=== PATIENT | female | born 1960 | race African-American/Black ===

== ENCOUNTER 2022-01-19 10:01 | Observation (INO) ==
[2022-01-19] MEDS ORDERED: NS 1,000 ML IV 1,000 ML ONE ×2 (10:18→16:33)
[2022-01-19] MEDS ORDERED: CLEOCIN 600 MG IV PREMIX 600 MG/50 ML BAG IV ONE (10:24)
[2022-01-19 10:43] VITALS: BMI 33.0
[2022-01-19] MEDS ORDERED: XYLOCAINE 1 % (PLAIN) ONE (12:03)
[2022-01-19] MEDS ORDERED: MARCAINE 0.25% INJ ONE (12:05)
[2022-01-19] MEDS ORDERED: ROBINUL ONE (12:06)
[2022-01-19] MEDS ORDERED: DIPRIVAN VIAL 20 ML ONE (12:06)
[2022-01-19] MEDS ORDERED: DECADRON INJ ONE (12:06)
[2022-01-19] MEDS ORDERED: ZOFRAN INJ 4 MG VIAL ONE (12:06)
[2022-01-19] MEDS ORDERED: PEPCID 20 MG VIAL ONE (12:06)
[2022-01-19] MEDS ORDERED: ULTANE GAS IN ONE (12:17)
[2022-01-19] MEDS ORDERED: EPHEDRINE SULFATE INJ ONE (12:36)
[2022-01-19] MEDS ORDERED: HYDROGEN PEROXIDE 3% ONE (14:05)
[2022-01-19] MEDS ORDERED: ZOFRAN INJ 4 MG VIAL IVP PRN ×2 (14:34)
[2022-01-19] MEDS ORDERED: BARHEMSYS INJ IVP PRN (14:34)
[2022-01-19] MEDS ORDERED: PHENERGAN INJ 25 MG IM PRN (14:34)
[2022-01-19] MEDS ORDERED: TYLENOL 325 MG TAB PO PRN (14:34)
[2022-01-19] MEDS ORDERED: BENADRYL INJ 50 MG VIAL IVP PRN (14:34)
[2022-01-19] MEDS ORDERED: DILAUDID INJ IVP PRN (14:34)
[2022-01-19] MEDS: NS 1,000 ML IV 1,000 ML IV SCH (19:21)
[2022-01-19] MEDS: PERCOCET TAB 5/325 MG PO PRN (20:05)
[2022-01-19] MEDS: COLACE CAP 100 MG PO SCH (21:30)
[2022-01-20] MEDS: DILAUDID INJ IVP PRN (05:45)
[2022-01-20] MEDS: NS 1,000 ML IV 1,000 ML IV SCH ×2 (06:39→08:10)
[2022-01-20 07:28] LABS: BLOOD UREA NITROGEN 15 mg/dL (7-18); CALCIUM 7.9 mg/dL (8.5-10.1); CARBON DIOXIDE 26.1 mmol/L (21-32); CHLORIDE 105 mmol/L (98-107); COR NA(FOR HYPERGLY) 143 mmol/L (136-145); CREATININE 1.11 mg/dL (0.55-1.02); SODIUM 139 mmol/L (136-145); eGFR NON BLACK RACES 53 (>60)
[2022-01-20] MEDS ORDERED: LOVENOX INJ 40 MG SYR SC ONE (07:35)
[2022-01-20] MEDS: LOVENOX INJ 40 MG SYR SC SCH (08:10)
--- NOTE | 2022-01-20 11:21 | PCM.PROG ---
Progress Note Progress Note for Day of Date of Exam: 01/20/22 Subjective Subjective: Mrs. Motta is a 61 yo female who is s/p left foot osteotomy with application of external fixator, DOS was 01/19. She is doing well with minimal pain. She denies any f/c/n/v/sob/calf pain. Past Medical Family Social History Past Med/Fam/Surg Hx: No changes since H&P Allergies: Allergies morphine Allergy (Verified 01/19/22 10:29) Penicillins Allergy (Verified 01/19/22 10:29) Vital Signs and I&O's Vital Signs: Temperature 98.1 F Pulse Rate [Left Brachial] 71 Pulse Rate 61 Respiratory Rate 20 Blood Pressure [Left Arm] 169/72 Blood Pressure 143/68 O2 Sat by Pulse Oximetry 97 Intake and Output: Intake & Output 01/17/22 01/18/22 01/19/22 01/20/22 23:59 23:59 23:59 23:59 Intake Total 1550 / 1550 1450 / 1450 Balance 1550 / 1550 1450 / 1450 Physical Exam Musculoskeletal: Left (Left LE with ex fix intact and stable. Sensation intact to the digits x5 on the left. Cap fill immediate to the digits. No active drainage. Patient is able to move her digits x5.) Mood Description: Calm Speech Pattern: Clear and Appropriate Laboratory and Diagnostics Result Diagrams: 01/20/22 06:40 01/20/22 06:40 Labs: Laboratory Sodium 139 mmol/L (136-145) 01/20/22 06:40 Corrected Sodium 143 mmol/L (136-145) 01/20/22 06:40 Potassium 3.9 mmol/L (3.5-5.1) 01/20/22 06:40 Chloride 105 mmol/L (98-107) 01/20/22 06:40 Carbon Dioxide 26.1 mmol/L (21-32) 01/20/22 06:40 BUN 15 mg/dL (7-18) 01/20/22 06:40 Creatinine 1.11 mg/dL (0.55-1.02) H 01/20/22 06:40 Est GFR (MDRD) Af Amer > 60 (>60) 01/20/22 06:40 Est GFR (MDRD) Non-Af 53 (>60) L 01/20/22 06:40 Glucose 268 mg/dL (65-99) H 01/20/22 06:40 POC Glucose (mg/dL) 108 mg/dL (65-99) H 01/19/22 10:20 Calcium 7.9 mg/dL (8.5-10.1) L 01/20/22 06:40 SARS CoV-2 RNA Rapid MITCHELL Negative (NEGATIVE) 01/19/22 10:14 Plan (1) Charcot's joint, left ankle and foot: Status: Acute Plan: Mrs. Motta is a 61 yo female who is s/p left Ex fix application and midfoot osteotomy, dos was 01/19. She is with VSS and NAD. No leukocytosis. Plan: ok for discharge from the foot and ankle standpoint Keep Left LE elevated x2 pillow. NWB on the left No dressing change will be needed Rx's in chart PT eval appreciated Patient is to follow up with Dr. Amin in Clinic Please do not hesitate to contact me with any questions or concerns. Jose Peterson DPM Fellow [phone]
[2022-01-20] MEDS ORDERED: LEXAPRO ONE (12:32)
[2022-01-20] MEDS: VITAMIN B-12 PO SCH (12:40)
[2022-01-20] MEDS: ASPIRIN EC 81 MG PO SCH (12:40)
[2022-01-20] MEDS: ZESTRIL TAB 10 MG PO SCH (12:41)
[2022-01-20] MEDS: LEXAPRO PO SCH (12:41)
[2022-01-20] MEDS: LANTUS SC SCH ×2 (12:42→20:30)
[2022-01-20] MEDS: MAG-OX TAB PO SCH (12:42)
[2022-01-20] MEDS: ZOLOFT PO SCH (12:42)
[2022-01-20] MEDS: FOLIC ACID TAB 1 MG PO SCH (12:42)
[2022-01-20] MEDS: LAC HYDRIN TOP SCH ×2 (12:44→20:58)
[2022-01-20] MEDS ORDERED: ZESTRIL TAB 20 MG PO ONE (13:21)
[2022-01-20] MEDS: PERCOCET TAB 5/325 MG PO PRN ×2 (15:52→21:02)
[2022-01-20] MEDS: GLUCOPHAGE PO SCH ×2 (17:19→20:58)
[2022-01-20] MEDS ORDERED: GLUCOPHAGE ONE (20:38)
[2022-01-20] MEDS: SNACK - Diabetic Appropriate PO SCH (20:58)
[2022-01-20] MEDS: COLACE CAP 100 MG PO SCH (20:58)
[2022-01-20] MEDS: LIPITOR TAB 20 MG PO SCH (21:01)
[2022-01-21 05:41] LABS: BASOPHILS % (AUTO) 0.7 % (0.2-1.0); EOSINOPHILS # (AUTO) 0.1 x10^3/uL (0.0-0.2); EOSINOPHILS % (AUTO) 1.9 % (0.9-2.9); HEMATOCRIT 36.2 % (36.0-47.0); HEMOGLOBIN 11.5 g/dL (12.0-16.0); LYMPHOCYTES # (AUTO) 1.5 X10^3/uL (1.3-2.9); LYMPHOCYTES % (AUTO) 22.1 % (21.0-51.0); MEAN CORPUSCULAR HEMOGLOBIN 23.2 pg (27.0-34.0); MEAN CORPUSCULAR HGB CONC 31.8 g/dL (33.0-35.0); MEAN PLATELET VOLUME 9.1 fL (7.4-11.0); MONOCYTES # (AUTO) 0.9 x10^3/uL (0.3-0.8); MONOCYTES % (AUTO) 12.9 % (0.0-13.0); NEUTROPHILS # (AUTO) 4.3 x10^3/uL (2.2-4.8); NEUTROPHILS % (AUTO) 62.4 % (42.0-75.0); RED BLOOD COUNT 4.95 X10^6/uL (3.5-5.4); RED CELL DISTRIBUTION WIDTH 15.3 % (11.6-16.5); WHITE BLOOD COUNT 6.8 X10^3/uL (3.6-10.0)
[2022-01-21 06:02] LABS: HYPOCHROMASIA SLIGHT; MICROCYTOSIS SLIGHT; PLATELET MORPHOLOGY COMMENT NORMAL (NORMAL); TEAR DROP CELLS PRESENT
[2022-01-21] MEDS ORDERED: LEXAPRO ONE (07:01)
[2022-01-21] MEDS ORDERED: GLUCOPHAGE ONE ×2 (07:01→16:37)
[2022-01-21] MEDS: NS 1,000 ML IV 1,000 ML IV SCH (08:32)
[2022-01-21] MEDS: MAG-OX TAB PO SCH (08:33)
[2022-01-21] MEDS: GLUCOPHAGE PO SCH ×2 (08:33→16:44)
[2022-01-21] MEDS: LANTUS SC SCH ×2 (08:34→21:37)
[2022-01-21] MEDS: FOLIC ACID TAB 1 MG PO SCH (08:34)
[2022-01-21] MEDS: ASPIRIN EC 81 MG PO SCH (08:34)
[2022-01-21] MEDS: LEXAPRO PO SCH (08:34)
[2022-01-21] MEDS: LAC HYDRIN TOP SCH ×2 (08:34→21:37)
[2022-01-21] MEDS: LOVENOX INJ 40 MG SYR SC SCH (08:35)
[2022-01-21] MEDS: ZOLOFT PO SCH (08:36)
[2022-01-21] MEDS: ZESTRIL TAB 10 MG PO SCH (08:36)
[2022-01-21] MEDS: VITAMIN B-12 PO SCH (08:36)
[2022-01-21] MEDS: ACTOS PO SCH (12:10)
[2022-01-21] MEDS: PERCOCET TAB 5/325 MG PO PRN (16:44)
[2022-01-21] MEDS: DILAUDID INJ IVP PRN (18:29)
[2022-01-21] MEDS: SNACK - Diabetic Appropriate PO SCH (21:35)
[2022-01-21] MEDS: COLACE CAP 100 MG PO SCH (21:36)
[2022-01-21] MEDS: LIPITOR TAB 20 MG PO SCH (21:37)
[2022-01-22] MEDS: DILAUDID INJ IVP PRN (04:21)
[2022-01-22 05:56] LABS: BASOPHILS # (AUTO) 0.1 X10^3/uL (0.0-0.1); BASOPHILS % (AUTO) 0.9 % (0.2-1.0); EOSINOPHILS # (AUTO) 0.2 x10^3/uL (0.0-0.2); EOSINOPHILS % (AUTO) 3.2 % (0.9-2.9); HEMATOCRIT 32.9 % (36.0-47.0); HEMOGLOBIN 10.4 g/dL (12.0-16.0); LYMPHOCYTES # (AUTO) 1.7 X10^3/uL (1.3-2.9); LYMPHOCYTES % (AUTO) 25.7 % (21.0-51.0); MEAN CORPUSCULAR HEMOGLOBIN 23.1 pg (27.0-34.0); MEAN CORPUSCULAR HGB CONC 31.6 g/dL (33.0-35.0); MEAN CORPUSCULAR VOLUME 73.2 fL (80.0-100.0); MEAN PLATELET VOLUME 8.8 fL (7.4-11.0); MONOCYTES # (AUTO) 0.9 x10^3/uL (0.3-0.8); MONOCYTES % (AUTO) 14.1 % (0.0-13.0); NEUTROPHILS # (AUTO) 3.6 x10^3/uL (2.2-4.8); NEUTROPHILS % (AUTO) 56.1 % (42.0-75.0); RED CELL DISTRIBUTION WIDTH 15.7 % (11.6-16.5); WHITE BLOOD COUNT 6.4 X10^3/uL (3.6-10.0)
[2022-01-22] MEDS ORDERED: GLUCOPHAGE ONE (05:56)
[2022-01-22 06:06] LABS: ALBUMIN 2.6 g/dL (3.4-5.0); CALCIUM 8.3 mg/dL (8.5-10.1); CARBON DIOXIDE 26.2 mmol/L (21-32); COR CA(FOR HYPOALB) 9.4 mg/dL (8.5-10.1); CREATININE 1.3 mg/dL (0.55-1.02); TOTAL PROTEIN 6.1 g/dL (6.4-8.2)
[2022-01-22] MEDS: GLUCOPHAGE PO SCH (06:31)
[2022-01-22 06:32] LABS: HYPOCHROMASIA SLIGHT; MICROCYTOSIS SLIGHT; PLATELET MORPHOLOGY COMMENT NORMAL (NORMAL)
[2022-01-22] MEDS: MAG-OX TAB PO SCH (06:32)
[2022-01-22 06:33] LABS: TEAR DROP CELLS PRESENT
[2022-01-22] MEDS ORDERED: LEXAPRO ONE (07:38)
[2022-01-22] MEDS: LOVENOX INJ 40 MG SYR SC SCH (08:14)
[2022-01-22] MEDS: ACTOS PO SCH (08:15)
[2022-01-22] MEDS: VITAMIN B-12 PO SCH (08:16)
[2022-01-22] MEDS: FOLIC ACID TAB 1 MG PO SCH (08:16)
[2022-01-22] MEDS: ZESTRIL TAB 10 MG PO SCH (08:16)
[2022-01-22] MEDS: ZOLOFT PO SCH (08:16)
[2022-01-22] MEDS: ASPIRIN EC 81 MG PO SCH (08:16)
[2022-01-22] MEDS: LEXAPRO PO SCH (08:17)
[2022-01-22] MEDS: LAC HYDRIN TOP SCH (08:17)
[2022-01-22] MEDS: LANTUS SC SCH (08:30)
[2022-01-22 09:18] VITALS: BP 116/55
[2022-01-22] MEDS ORDERED: GLUCOPHAGE PO SCH (17:00)
== END 2022-01-22 09:15 | disposition home or self-care (01) ==
LOC: EDBD → SURG1 10:01 → MED/SURG 10:01
PROVIDERS: ADMIT Obstetrics & Gynecology Obstetrics; ATTEND Obstetrics & Gynecology Obstetrics
PROC: APEXFIX (2022-01-19 14:45)
DX: S93.05XA Dislocation of left ankle joint, initial encounter; X58.XXXA Exposure to other specified factors, initial encounter; Z20.822 Contact with and (suspected) exposure to COVID-19; Q66.02 Congenital talipes equinovarus, left foot; M14.672 Charcot's joint, left ankle and foot; R73.09 Other abnormal glucose

== ENCOUNTER 2022-03-02 08:30 | Observation (INO) ==
[2022-03-02] MEDS ORDERED: NS 1,000 ML IV 1,000 ML ONE ×2 (09:18→14:16)
[2022-03-02] MEDS ORDERED: NS 100 ML IV 100 ML ONE (09:18)
[2022-03-02] MEDS ORDERED: ANCEF VIAL 1 GRAM ONE (09:18)
[2022-03-02 09:35] VITALS: BMI 33.0
[2022-03-02] MEDS ORDERED: MARCAINE 0.25% INJ ONE (12:04)
[2022-03-02] MEDS ORDERED: BETADINE SOLN ONE ×2 (12:05→12:09)
[2022-03-02] MEDS ORDERED: BRIDION ONE (12:08)
[2022-03-02] MEDS ORDERED: ZEMURON 100 MG VIAL ONE (12:08)
[2022-03-02] MEDS ORDERED: FENTANYL VIAL INJ 100 mcg ONE (12:08)
[2022-03-02] MEDS ORDERED: TORADOL 30 MG VIAL ONE (12:08)
[2022-03-02] MEDS ORDERED: QUELICIN (OR ANECTINE) ONE (12:08)
[2022-03-02] MEDS ORDERED: ZOFRAN INJ 4 MG VIAL ONE (12:08)
[2022-03-02] MEDS ORDERED: DIPRIVAN VIAL ONE (12:08)
[2022-03-02] MEDS ORDERED: OFIRMEV IV 1000 MG VIAL IV ONE (12:08)
[2022-03-02] MEDS ORDERED: EPHEDRINE SULFATE INJ ONE (12:08)
[2022-03-02] MEDS ORDERED: VERSED ONE (12:08)
[2022-03-02] MEDS ORDERED: HYDROGEN PEROXIDE 3% ONE (14:45)
[2022-03-02] MEDS ORDERED: PHENERGAN INJ 25 MG IM PRN (15:20)
[2022-03-02] MEDS ORDERED: BARHEMSYS INJ IVP PRN (15:20)
[2022-03-02] MEDS ORDERED: BENADRYL INJ 50 MG VIAL IVP PRN (15:20)
[2022-03-02] MEDS ORDERED: DILAUDID INJ IVP PRN (15:20)
[2022-03-02] MEDS ORDERED: ZOFRAN INJ 4 MG VIAL IVP PRN ×2 (15:20→15:27)
[2022-03-02] MEDS ORDERED: TYLENOL 325 MG TAB PO PRN (15:27)
[2022-03-02] MEDS: PERCOCET TAB 5/325 MG PO PRN (16:33)
[2022-03-02] MEDS ORDERED: COLACE CAP 100 MG PO SCH (21:00)
[2022-03-02] MEDS: DILAUDID INJ IVP PRN (21:07)
[2022-03-03] MEDS: DILAUDID INJ IVP PRN ×3 (04:37→16:42)
[2022-03-03 06:16] LABS: BASOPHILS % (AUTO) 0.5 % (0.2-1.0); EOSINOPHILS # (AUTO) 0.2 x10^3/uL (0.0-0.2); EOSINOPHILS % (AUTO) 2.7 % (0.9-2.9); HEMATOCRIT 33.2 % (36.0-47.0); HEMOGLOBIN 10.4 g/dL (12.0-16.0); LYMPHOCYTES # (AUTO) 0.7 X10^3/uL (1.3-2.9); LYMPHOCYTES % (AUTO) 9.6 % (21.0-51.0); MEAN CORPUSCULAR HEMOGLOBIN 23.3 pg (27.0-34.0); MEAN CORPUSCULAR HGB CONC 31.4 g/dL (33.0-35.0); MEAN PLATELET VOLUME 9.1 fL (7.4-11.0); MONOCYTES # (AUTO) 0.8 x10^3/uL (0.3-0.8); NEUTROPHILS # (AUTO) 5.4 x10^3/uL (2.2-4.8); NEUTROPHILS % (AUTO) 76.2 % (42.0-75.0); RED BLOOD COUNT 4.49 X10^6/uL (3.5-5.4); RED CELL DISTRIBUTION WIDTH 15.5 % (11.6-16.5)
[2022-03-03 06:19] LABS: BLOOD UREA NITROGEN 13 mg/dL (7-18); CALCIUM 8.2 mg/dL (8.5-10.1); CARBON DIOXIDE 28.7 mmol/L (21-32); CHLORIDE 109 mmol/L (98-107); COR NA(FOR HYPERGLY) 148 mmol/L (136-145); CREATININE 1.09 mg/dL (0.55-1.02); SODIUM 144 mmol/L (136-145); eGFR NON BLACK RACES 54 (>60)
[2022-03-03 06:42] LABS: HYPOCHROMASIA SLIGHT; MICROCYTOSIS SLIGHT; PLATELET MORPHOLOGY COMMENT NORMAL (NORMAL)
[2022-03-03] MEDS: PERCOCET TAB 5/325 MG PO PRN ×2 (08:36→14:07)
[2022-03-03] MEDS ORDERED: LOVENOX INJ 40 MG SYR SC SCH (09:00)
--- NOTE | 2022-03-03 11:17 | PCM.PROG ---
Progress Note Progress Note for Day of Date of Exam: 03/03/22 Subjective Subjective: Mrs. Motta is a 61yo female with a PMHx of charcot joint left. She is s/p left hindfoot fusion. Her pain is a 8/10, currently taking Percocet and dilaudid. Some strike through noted along the medial and lateral foot. She denies any f/c/n/v/sob/calf pain. Past Medical Family Social History Past Med/Fam/Surg Hx: No changes since H&P Allergies: Allergies morphine Allergy (Verified 01/19/22 10:29) Penicillins Allergy (Verified 01/19/22 10:29) Vital Signs and I&O's Vital Signs: Temperature 98.6 F Pulse Rate [Left Radial] 94 Pulse Rate 70 Respiratory Rate 20 Blood Pressure [Left Arm] 161/67 Blood Pressure 148/66 O2 Sat by Pulse Oximetry 100 Intake and Output: Intake & Output 02/28/22 03/01/22 03/02/22 03/03/22 23:59 23:59 23:59 23:59 Intake Total 1860 / 1860 940 / 940 Output Total 349 / 349 Balance 1511 / 1511 940 / 940 Physical Exam Skin: Other (Incision sites are well coapted. No edema. No erythema. No active drainage. No soi. ) Musculoskeletal: Left (Left ankle pain. ) Mood Description: Calm Speech Pattern: Clear and Appropriate Laboratory and Diagnostics Result Diagrams: 03/03/22 05:58 03/03/22 05:58 Labs: Laboratory WBC 7.0 X10^3/uL (3.6-10.0) 03/03/22 05:58 RBC 4.49 X10^6/uL (3.5-5.4) 03/03/22 05:58 Hgb 10.4 g/dL (12.0-16.0) L 03/03/22 05:58 Hct 33.2 % (36.0-47.0) L 03/03/22 05:58 MCV 74.0 fL (80.0-100.0) L 03/03/22 05:58 MCH 23.3 pg (27.0-34.0) L 03/03/22 05:58 MCHC 31.4 g/dL (33.0-35.0) L 03/03/22 05:58 RDW 15.5 % (11.6-16.5) 03/03/22 05:58 Plt Count 179 X10^3/uL (150.0-450.0) 03/03/22 05:58 Plt Count Comment Adequate (ADEQUATE) 03/03/22 05:58 MPV 9.1 fL (7.4-11.0) 03/03/22 05:58 Neut % (Auto) 76.2 % (42.0-75.0) H 03/03/22 05:58 Lymph % (Auto) 9.6 % (21.0-51.0) L 03/03/22 05:58 [place] % (Auto) 11.0 % (0.0-13.0) 03/03/22 05:58 Eos % (Auto) 2.7 % (0.9-2.9) 03/03/22 05:58 Baso % (Auto) 0.5 % (0.2-1.0) 03/03/22 05:58 Neut # (Auto) 5.4 x10^3/uL (2.2-4.8) H 03/03/22 05:58 Lymph # (Auto) 0.7 X10^3/uL (1.3-2.9) L 03/03/22 05:58 [place] # (Auto) 0.8 x10^3/uL (0.3-0.8) 03/03/22 05:58 Eos # (Auto) 0.2 x10^3/uL (0.0-0.2) 03/03/22 05:58 Baso # (Auto) 0.0 X10^3/uL (0.0-0.1) 03/03/22 05:58 Absolute Nucleated RBC 0.1 /100WBC 03/03/22 05:58 Plt Morphology Comment Normal (NORMAL) 03/03/22 05:58 RBC Morphology Abnormal (NORMAL) A 03/03/22 05:58 Hypochromasia Slight A 03/03/22 05:58 Microcytosis Slight A 03/03/22 05:58 Sodium 144 mmol/L (136-145) 03/03/22 05:58 Corrected Sodium 148 mmol/L (136-145) H 03/03/22 05:58 Potassium 4.6 mmol/L (3.5-5.1) 03/03/22 05:58 Chloride 109 mmol/L (98-107) H 03/03/22 05:58 Carbon Dioxide 28.7 mmol/L (21-32) 03/03/22 05:58 BUN 13 mg/dL (7-18) 03/03/22 05:58 Creatinine 1.09 mg/dL (0.55-1.02) H 03/03/22 05:58 Est GFR (MDRD) Af Amer > 60 (>60) 03/03/22 05:58 Est GFR (MDRD) Non-Af 54 (>60) L 03/03/22 05:58 Glucose 271 mg/dL (65-99) H 03/03/22 05:58 POC Glucose (mg/dL) 116 mg/dL (65-99) H 03/02/22 09:37 Calcium 8.2 mg/dL (8.5-10.1) L 03/03/22 05:58 SARS-CoV-2 (PCR) Negative (NEGATIVE) 03/02/22 08:46 Influenza Type A (PCR) Negative (NEGATIVE) 03/02/22 08:46 Influenza Type B (PCR) Negative (NEGATIVE) 03/02/22 08:46 RSV (PCR) Negative (NEGATIVE) 03/02/22 08:46 Tissue Pathology To follow 03/02/22 14:30 Plan (1) Charcot's joint, left ankle and foot: Status: Acute Plan: Mrs. Motta is a 61 yo female with a PMHx of left charcot joint. She is s/p left hindfoot fusion. Some strike through noted. Dressing changed. Pain of 8/10. She is with VSS and NAD. No leukocytosis. Plan: Dressed with 4x4, cast padding, with posterior and mildred. NWB on the left Pending PT evaluation. Rx's in the chart Following PT evaluation patient is ok for discharge back to her facility Patient is to follow up with Dr. Amin in the clinic in one week, Will monitor. Please do not hesitate to contact me with questions or concerns. Jose Peterson DPM Fellow. [phone]
[2022-03-03] MEDS: NovoLIN R (or HumuLIN R) SUBCUT PRN ×2 (13:14→16:42)
[2022-03-03] MEDS ORDERED: COZAAR PO SCH (15:00)
[2022-03-03 17:45] VITALS: BP 174/72
== END 2022-03-03 17:46 | disposition home or self-care (01) ==
LOC: MED/SURG
PROVIDERS: ADMIT Obstetrics & Gynecology Obstetrics; ATTEND Podiatrist
DX: M19.072 Primary osteoarthritis, left ankle and foot; Z20.822 Contact with and (suspected) exposure to COVID-19; M14.672 Charcot's joint, left ankle and foot; M24.572 Contracture, left ankle

== ENCOUNTER 2022-06-01 08:36 | Day surgery (SDC) ==
[2022-06-01] MEDS ORDERED: ANCEF VIAL 1 GRAM ONE (09:32)
[2022-06-01] MEDS ORDERED: NS 1,000 ML IV 1,000 ML ONE ×2 (09:32→15:59)
[2022-06-01] MEDS ORDERED: NS 100 ML IV 100 ML ONE (09:39)
[2022-06-01 10:12] VITALS: BMI 33.7
[2022-06-01] MEDS ORDERED: FENTANYL VIAL INJ 100 mcg ONE (12:55)
[2022-06-01] MEDS ORDERED: XYLOCAINE 2 % (PLAIN) ONE (12:55)
[2022-06-01] MEDS ORDERED: BRIDION ONE (12:55)
[2022-06-01] MEDS ORDERED: ZEMURON 100 MG VIAL ONE (12:55)
[2022-06-01] MEDS ORDERED: OFIRMEV IV 1000 MG VIAL 1,000 MG/100 ML VIAL IV ONE (12:55)
[2022-06-01] MEDS ORDERED: ZOFRAN INJ 4 MG VIAL ONE (12:55)
[2022-06-01] MEDS ORDERED: VERSED ONE (12:55)
[2022-06-01] MEDS ORDERED: PEPCID 20 MG VIAL ONE (12:55)
[2022-06-01] MEDS ORDERED: DIPRIVAN VIAL 20 ML ONE (12:55)
[2022-06-01] MEDS ORDERED: TORADOL 30 MG VIAL ONE (12:55)
[2022-06-01] MEDS ORDERED: XYLOCAINE JELLY TOP ONE (13:25)
[2022-06-01] MEDS ORDERED: MARCAINE 0.25% INJ ONE (14:12)
[2022-06-01] MEDS ORDERED: SUPRANE ONE (14:41)
[2022-06-01] MEDS ORDERED: EPHEDRINE SULFATE INJ ONE (14:49)
[2022-06-01] MEDS ORDERED: BENADRYL INJ 50 MG VIAL IVP PRN (17:22)
[2022-06-01] MEDS ORDERED: DILAUDID INJ IVP PRN ×2 (17:22→17:57)
[2022-06-01] MEDS ORDERED: PHENERGAN INJ 25 MG IM PRN (17:22)
[2022-06-01] MEDS ORDERED: BARHEMSYS INJ IVP PRN (17:22)
[2022-06-01] MEDS ORDERED: ZOFRAN INJ 4 MG VIAL IVP PRN ×2 (17:22→17:54)
[2022-06-01] MEDS ORDERED: REGLAN INJ 10 MG VIAL IVP PRN (17:22)
[2022-06-01] MEDS ORDERED: PERCOCET TAB 5/325 MG PO PRN (17:54)
[2022-06-01] MEDS ORDERED: COLACE CAP 100 MG PO SCH (21:00)
[2022-06-02 06:27] LABS: BLOOD UREA NITROGEN 17 mg/dL (7-18); CALCIUM 8.5 mg/dL (8.5-10.1); CARBON DIOXIDE 26.4 mmol/L (21-32); CHLORIDE 107 mmol/L (98-107); COR NA(FOR HYPERGLY) 146 mmol/L (136-145); CREATININE 1.02 mg/dL (0.55-1.02); SODIUM 142 mmol/L (136-145); eGFR NON BLACK RACES 59 (>60)
[2022-06-02] MEDS ORDERED: NovoLIN R (or HumuLIN R) SC PRN (10:12)
[2022-06-02] MEDS ORDERED: COZAAR PO SCH (11:00)
--- NOTE | 2022-06-02 12:08 | PCM.PROG ---
Progress Note Progress Note for Day of Date of Exam: 06/02/22 Subjective Subjective: This is a 61 yo F who was admit for observation following left foot charcot reconstructive surgery yesterday (8-5) for pain management. Nursing team reports moderate strikethrough of bandages throughout the night. Patient denies any symptoms at this point and does not have any pain. Patient states she is ready to be discharged. Denies any f,c,n,v,sob, or cp. Past Medical Family Social History Allergies: Allergies morphine Allergy (Verified 01/19/22 10:29) Penicillins Allergy (Verified 01/19/22 10:29) Review of Systems ROS: No change since H&P Vital Signs and I&O's Vital Signs: Temperature 99.1 F Pulse Rate [Right Radial] 80 Pulse Rate 67 Respiratory Rate 18 Blood Pressure [Right Arm] 174/76 Blood Pressure [Left Arm] 174/72 Blood Pressure 164/75 O2 Sat by Pulse Oximetry 96 Intake and Output: Intake & Output 05/30/22 05/31/22 06/01/22 06/02/22 23:59 23:59 23:59 23:59 Intake Total 2110 / 2110 Output Total 510 / 510 Balance 1600 / 1600 Physical Exam Oriented: Normal, Time, Person and Place Musculoskeletal: Left, Ankle, Foot (Incisions are well coapted, sutures intact, small amount of sanginous drainage noted on dressing change but within normal post operative expectations), Swelling, Deformity and Sensory Deficit Mood Description: Calm Speech Pattern: Clear and Appropriate Laboratory and Diagnostics Result Diagrams: 06/02/22 05:11 Labs: Laboratory Sodium 142 mmol/L (136-145) 06/02/22 05:11 Corrected Sodium 146 mmol/L (136-145) H 06/02/22 05:11 Potassium 3.8 mmol/L (3.5-5.1) 06/02/22 05:11 Chloride 107 mmol/L (98-107) 06/02/22 05:11 Carbon Dioxide 26.4 mmol/L (21-32) 06/02/22 05:11 BUN 17 mg/dL (7-18) 06/02/22 05:11 Creatinine 1.02 mg/dL (0.55-1.02) 06/02/22 05:11 Est GFR (MDRD) Af Amer > 60 (>60) 06/02/22 05:11 Est GFR (MDRD) Non-Af 59 (>60) 06/02/22 05:11 Glucose 262 mg/dL (65-99) H 06/02/22 05:11 POC Glucose (mg/dL) 367 mg/dL (65-99) H 06/02/22 11:24 Calcium 8.5 mg/dL (8.5-10.1) 06/02/22 05:11 SARS-CoV-2 (PCR) Negative (NEGATIVE) 06/01/22 10:25 Tissue Pathology To follow 06/01/22 16:40 Plan (1) Charcot's joint, left ankle and foot: Status: Acute Plan: - Patient evaluated and chart reviewed. - No post operative pain at this time. May increase as block wears off, so she has been provided a pain medications prescription on her chart for DC. - DVT Proph: Lovenox 40mg QD, on chart, to be started tomorrow. - NWB to L foot at all times - Leave dressing and splint CDI until follow up. - Follow up with Dr. Amin in clinic within 1 week, instructions provided in chart for DC. - Okay for DC from foot and ankle POV at this time. DC order placed in computer. (2) Diabetes mellitus: Status: Acute Plan: Follow up with PCP for continued tight glycemic control. Discussed with patient and elevated blood sugar levels affect on the LE. (3) Peripheral neuropathy: Status: Acute
--- NOTE | 2022-06-02 12:41 | DR.SSS ---
SHORT STAY SUMMARY Admission Date Date of Admission: 06/01/22 Discharge Date Discharge Date: 06/02/22 Admission Diagnoses Admission Diagnoses: Left foot charcot arthropathy Diabetes mellitus Discharge Diagnoses Discharge Diagnoses: left foot charcot reconstructive surgery Diabetes mellitus Chief Complaint Chief Complaint: Left foot pain History of Present Illness History of Present Illness: Ms Motta is a 61y/o female with severe left foot charcot arthropathy had surgical repair done yesterday. She was admitted overnight for post-op pain. She states she is doing ok this morning. She does have foot pain which has been controlled with medications. There was some blood streaking noted in the dressing. Patient will be seen by Podiatry this morning. Allergies Allergies Allergy/AdvReac Type Severity Reaction Status Date / Time morphine Allergy Verified 01/19/22 10:29 Penicillins Allergy Verified 01/19/22 10:29 Medications Home Medications: morphine Allergy (Verified 01/19/22 10:29) Penicillins Allergy (Verified 01/19/22 10:29) Family History Family Medical History: Diabetes Mellitus and Coronary Artery Disease Social History Does patient currently use any type of tobacco product: No Have you used tobacco products in the last 12 months: No Type of Tobacco Use: None Alcohol Use: None Drug Use: None Review of Systems Constitutional: No Symptoms Reported Eyes: No Symptoms Reported ENT: No Symptoms Reported Respiratory: No Symptoms Reported Cardiovascular: No Symptoms Reported Gastrointestinal: No Symptoms Reported Musculoskeletal: Foot Pain Skin: No Symptoms Reported Neurological: No Symptoms Reported Physical Exam Vital Signs: Last Vital Signs Temp 99.1 F 06/02/22 08:00 Pulse 80 06/02/22 08:00 Resp 18 06/02/22 11:12 BP 174/76 06/02/22 08:00 Pulse Ox 96 06/02/22 08:00 O2 Del Method Room Air 06/02/22 08:00 Oriented: Normal Eyes: Normal Throat: Normal Respiratory: Clear Throughout Cardiovascular: Normal Auscultation: Bowel Sounds: Normal Palpation: Normal Tenderness: Normal Skin: Normal Musculoskeletal: Left and Foot (some blood streaking noted on the dressing ) Psychiatric: Normal Mood Description: Calm Affect: Normal Speech Pattern: Clear and Appropriate Labs Labs: Laboratory Last Values Sodium 142 mmol/L (136-145) 06/02/22 05:11 Corrected Sodium 146 mmol/L (136-145) H 06/02/22 05:11 Potassium 3.8 mmol/L (3.5-5.1) 06/02/22 05:11 Chloride 107 mmol/L (98-107) 06/02/22 05:11 Carbon Dioxide 26.4 mmol/L (21-32) 06/02/22 05:11 BUN 17 mg/dL (7-18) 06/02/22 05:11 Creatinine 1.02 mg/dL (0.55-1.02) 06/02/22 05:11 Est GFR (MDRD) Af Amer > 60 (>60) 06/02/22 05:11 Est GFR (MDRD) Non-Af 59 (>60) 06/02/22 05:11 Glucose 262 mg/dL (65-99) H 06/02/22 05:11 POC Glucose (mg/dL) 367 mg/dL (65-99) H 06/02/22 11:24 Calcium 8.5 mg/dL (8.5-10.1) 06/02/22 05:11 SARS-CoV-2 (PCR) Negative (NEGATIVE) 06/01/22 10:25 Tissue Pathology To follow 06/01/22 16:40 Assessment/Plan (1) Charcot's joint, left ankle and foot: (2) Diabetes mellitus: (3) Peripheral neuropathy: Hospital Course Hospital Course: Patient underwent left foot charcot surgical repair yesterday on 06/01/22. She was admitted overnight for post-op pain control as per Podiatry. Patient doing well this morning. Her pain has been controlled. She was started back on losartan and insulin. Patient was evaluated by Podiatry, dressing change and stable for discharge. Patient given instructions as per Podiatry regarding wt bearing on that foot. She does have a walker. Follow up with Dr Amin and PCP as scheduled. Discharge Medications Discharge Medications: Prescriptions: Discharge Plan Discharge Plan Health Concerns: Post Hospitalization: new medications and changes needed to prevent readmission or further decline. Pt educated and given instructions on all concerns. Plan of Treatment: Continue with present treatment and follow up plan. Pt is to keep follow up appointment as instructed and take medications as ordered. Prescription drug monitoring program results: PDMP reviewed and no concerns identified Prescriptions: No Action ammonium lactate 12 % Lotion 1 applic TOPICAL BID Rx Instructions: appy to both feet twice daily metformin 1,000 mg Tablet 1,000 mg PO BID Rx Instructions: take 1 tablet by mouth twice daily magnesium oxide 400 mg magnesium Tablet 400 mg PO DAILY B12 Active 1,000 mcg Tablet,Chewable 500 mcg PO DAILY Rx Instructions: take 1 tablet by mouth once daily hydrocodone-acetaminophen 5-325 mg Tablet 1 tab PO Q4H MDD 6 PRN (Reason: Moderate Pain (Scale Score 5-6)) Qty: 36 0RF Rx Instructions: one tablet every 4 hours as needed for post op pain. ondansetron 8 mg Film 8 mg PO Q8H Qty: 30 0RF Rx Instructions: one tablet every 8 hours as needed for nausea. enoxaparin 40 mg/0.4 mL Syringe 40 mg SUBCUT Q24H Qty: 30 0RF Rx Instructions: lovenox 30mg sq daily for next 30 days atorvastatin 20 mg Tablet 20 mg PO HS 0RF Lantus U-100 Insulin 100 unit/mL Solution 20 units SC BID 0RF aspirin 81 mg Tablet,Delayed Release (Dr/Ec) 81 mg PO DAILY 0RF docusate sodium 100 mg Capsule 200 mg PO HS 0RF folic acid 1 mg Tablet 1 mg PO DAILY 0RF Lac-Hydrin Five 5 % Lotion 1 applic TOP BID 0RF escitalopram oxalate 10 mg Tablet 10 mg PO DAILY 0RF sertraline 50 mg Tablet 50 mg PO DAILY 0RF losartan [Cozaar] 25 mg Tablet 25 mg PO DAILY Orders to Discharge Patient Discharge Orders: Discharge (Routine); Ordered 06/02/22 Ordered By: Krystian Ruelas Follow ups/Referrals Follow ups/Referrals: [facility],None [Primary Care Provider] - 1 WEEK
[2022-06-02 13:09] VITALS: BP 187/76
[2022-06-02] MEDS ORDERED: LOVENOX INJ 40 MG SYR SC SCH (20:00)
== END 2022-06-02 14:22 ==
LOC: SURG1 08:36 → MED/SURG 08:36 → OBS 17:59 → SURG1 06-02 14:22
PROVIDERS: ATTEND Podiatrist
DX: S93.315D Dislocation of tarsal joint of left foot, subsequent encounter; E11.9 Type 2 diabetes mellitus without complications; Y93.9 Activity, unspecified; G62.9 Polyneuropathy, unspecified; Y92.9 Unspecified place or not applicable; X58.XXXD Exposure to other specified factors, subsequent encounter; M14.672 Charcot's joint, left ankle and foot; Z20.822 Contact with and (suspected) exposure to COVID-19

== ENCOUNTER 2024-03-20 14:30 | Observation (INO) ==
[2024-03-20] MEDS: NOZIN NASAL SANITIZER TP ONE (10:28)
[2024-03-20] MEDS: NS 1,000 ML IV 1,000 ML ONE ×2 (10:29→14:30)
[2024-03-20 11:01] VITALS: BMI 30.8
[2024-03-20] MEDS: CLEOCIN 600 MG IV PREMIX 600 MG/50 ML BAG IV ONE (12:58)
[2024-03-20] MEDS: MARCAINE 0.25% INJ ONE (13:28)
[~2024-03-20 14:30] MED LIST: BARHEMSYS INJ IVP PRN; BENADRYL INJ 50 MG VIAL IVP PRN; DILAUDID INJ IVP PRN; DILAUDID INJ ONE; DIPRIVAN VIAL ONE; KETAMINE HCL ONE; NEO-SYNEPHRINE INJ ONE; PEPCID 20 MG VIAL ONE; PRECEDEX INJ VIAL ONE; REGLAN INJ 10 MG VIAL IVP PRN; ROBINUL ONE; ULTANE GAS IN ONE; ZOFRAN INJ 4 MG VIAL IVP PRN; ZOFRAN INJ 4 MG VIAL ONE
[2024-03-20] MEDS ORDERED: TYLENOL 325 MG TAB PO PRN (15:49)
[2024-03-20] MEDS ORDERED: ZOFRAN INJ 4 MG VIAL IVP PRN (15:49)
[2024-03-20] MEDS: NS 1,000 ML IV 1,000 ML IV SCH (18:02)
[2024-03-20] MEDS: COLACE CAP 100 MG PO SCH (20:40)
[2024-03-20] MEDS: PERCOCET TAB 5/325 MG PO PRN (20:41)
[2024-03-20] MEDS: NOZIN NASAL SANITIZER TP SCH (20:42)
[2024-03-21 05:16] LABS: CALCIUM 8.8 mg/dL (8.5-10.1); CARBON DIOXIDE 25.6 mmol/L (21-32); CREATININE 1.23 mg/dL (0.55-1.02)
[2024-03-21 07:44] VITALS: BP 144/65; PULSE 81; RESP 18; TEMP 98.8; O2SAT 96
[2024-03-21] MEDS: LOVENOX INJ 40 MG SYR SC SCH (08:52)
--- NOTE | 2024-03-21 09:26 | NOTE.SOAP ---
Soap Note Note for Day of Date of Exam: 03/21/24 Subjective Data Subjective Data: 63 year old female with DM and osteoarthritis underwent a triple arthrodesis, LISSETT and application of multiplane ex fix yesterday 03/20. SHe is doing well this am; still in pain but well controlled. Denies any constitutional symptoms overnight and slept well Objective Data Objective Data: Incision sites perfectly coapted; no dehiscence or necrosis. Minimal edema. No echymosis or erythema. Sanguinous drainage on the dressings but no hematoma formation or active bleeding. Foot is in a plantigrade position. Pin sites are clean; no drainage or purulence. Neurovascular status intact Assessment Assessment: S/P Right foot Triple Arthrodesis, LISSETT, and Application of Multiplane External Fixator (DOS: 03/20/2025) - Charcot Arthropathy - Osteoarthritis Plan Plan: Patient seen bedside this am. Dressings were changed with Xeroform DSD. Incisions were inspected. Patient can be WBAT at 50% with assistance of a walker. Pain is well controlled. Sending her home with [place] 5, Lovenox and Z[place]iko. She is okay for discharge from a podiatry standpoint. Follow up appointment with Dr. Amin next week.
--- NOTE | 2024-03-21 21:35 | PCM.DCPLAN ---
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: Status: Acute (3) Peripheral neuropathy: Status: Acute (4) Primary hypertension: Status: Acute (5) Type 2 diabetes mellitus: Status: Acute (6) Depression: Status: Acute (7) Therapeutic opioid-induced constipation (OIC): Status: Acute (8) History of non anemic vitamin B12 deficiency: Status: Acute (9) Urinary tract infection: Status: Acute (10) History of folic acid deficiency (non-anemic): Status: Acute (11) Hypercholesteremia: Status: Acute (12) History of bipolar disorder: Status: Acute (13) History of schizoaffective disorder: Status: Acute (14) Peripheral arterial disease: Status: Acute (15) Chronic pain of both feet: Status: Acute Discharge Diagnoses Discharge Diagnosis: 1. Status post surgical repair of left Charcot's joint, left ankle and foot. 2. Tight left heel cord secondary to neurological cause status post surgery status-post lengthening of left Achilles tendon. 3. History of peripheral artery disease 4. History of chronic pain in both feet 5. Diabetes mellitus type 2 6. History of primary hypertension 7. History of hypercholesteremia 8. History of bipolar disorder 9. History of schizoaffective disorder 10. History of depression 11. History of vitamin B12 12. History of folate deficiency 13. UTI secondary to E. coli 14. Peripheral neuropathy 15. Therapeutic opioid induced constipation Discharge Medications Discharge Medications: Home Medication List insulin glargine 100 unit/mL subcutaneous solution (Lantus U-100 Insulin) 20 units SC DAILYHS 03/20/24 [History] lisinopril 10 mg tablet 10 mg PO QDAY 03/20/24 [History] nitrofurantoin monohydrate/macrocrystals 100 mg capsule (Macrobid) 100 mg PO BID 03/20/24 [History] enoxaparin 40 mg/0.4 mL subcutaneous syringe (Lovenox) 40 mg (0.4 mL) subcut QDAY 30 days #12 mL 03/21/24 [Rx] hydrocodone 5 mg-acetaminophen 325 mg tablet 1 tab PO Q4H PRN #36 tabs 03/21/24 [Rx] ondansetron HCl 8 mg tablet 8 mg PO Q8H PRN #18 tabs 03/21/24 [Rx] Prescriptions: enoxaparin [Lovenox] Fatoumata Snell hydrocodone-acetaminophen Channing,Fatoumata ondansetron HCl [facility] Course Latest Lab Results: Laboratory Last Values Sodium 137 mmol/L (136-145) 03/21/24 04:22 Corrected Sodium 140 mmol/L (136-145) 03/21/24 04:22 Potassium 4.0 mmol/L (3.5-5.1) 03/21/24 04:22 Chloride 102 mmol/L (98-107) 03/21/24 04:22 Carbon Dioxide 25.6 mmol/L (21-32) 03/21/24 04:22 BUN 27 mg/dL (7-18) H 03/21/24 04:22 Creatinine 1.23 mg/dL (0.55-1.02) H 03/21/24 04:22 Est GFR (MDRD) Af Amer 57 (>60) L 03/21/24 04:22 Est GFR (MDRD) Non-Af 47 (>60) L 03/21/24 04:22 Glucose 230 mg/dL (65-99) H 03/21/24 04:22 POC Glucose (mg/dL) 185 mg/dL (65-99) H 03/21/24 11:21 Calcium 8.8 mg/dL (8.5-10.1) 03/21/24 04:22 Hospital Course: The patient was admitted to [facility] yesterday under primary care physician Dr. Taiwo Irving. Dr. Irving cleared the patient for surgery on her left foot ankle and Achilles tendon. The patient had Charcot's foot and a tight Achilles tendon that needed lengthening. Vision Specialist, Dr. Rubens Amin did her surgery yesterday without any significant complications. She had no acute problems overnight and this morning she is doing well. We did get her culture back on her urinalysis that was done in preop and she has grown out E. coli. She has been on Macrobid but unfortunately has not cleared the infection. We will go ahead and change her to ciprofloxacin 500 mg 1 p.o. twice daily x 1 week. The ciprofloxacin has a good AIDEE of less than 0.25. We will have her stop her Macrobid and I told her this personally not to take it. I also warned her by taking it because she does have mild chronic kidney disease stage II. The patient will resume her regular home medications as before except for the Macrobid. We are replacing that with ciprofloxacin 500 mg p.o. twice daily x 1 week. She will also take medication prescribed to her by her mammography technologist, Dr. Rubens Amin as directed. The patient will be discharged home in stable condition today. She will be following up with her mammography technologist, Dr. Rubens Amin and her primary care physician as needed. She is instructed that if she should have any trouble to call her surgeon Dr. Rubens Amin or she cannot get a hold of him to go to the closest emergency department for further evaluation and treatment. The patient understands this.
== END 2024-03-21 14:30 | disposition home or self-care (01) ==
LOC: MED/SURG
PROVIDERS: ADMIT Obstetrics & Gynecology Obstetrics; ATTEND Obstetrics & Gynecology Obstetrics
PROC: APEXFIX (2024-03-20 14:45)